=== PATIENT | female | born 1980 | race African-American/Black ===

== ENCOUNTER 2017-10-23 08:36 | Emergency (ER) | payer OTHER ==
[2017-10-23 08:40] VITALS: BP 134/92; PULSE 92; TEMP 98.5
--- NOTE | 2017-10-23 09:07 | PDOC ---
History of Present Illness - General Chief Complaint: Ear Problem Stated Complaint: EAR PROBLEM Time Seen by Provider: 10/23/17 08:54 History Source: Patient Exam Limitations: No Limitations - History of Present Illness Initial Comments: CHIEFL COMPLAINT: 37 y/o afebrile female with left ear pain with drainage x 3 days. HISTORY OF PRESENT ILLNESS: The patient also admits to decreased hearing in her left ear. She denies ear trauma, swimming, f/c, n/v/d, CLARK, neck pain, and all other symptoms. She has been using OTC ear drops with little relief. Past History - Past Medical History Allergies/Adverse Reactions: Allergies Allergy/AdvReac Type Severity Reaction Status Date / Time diphenhydramine Allergy Elevated Verified 10/23/17 09:03 [From Benadryl] Blood Pressure tramadol Allergy Hives Verified 10/23/17 09:03 Home Medications: Ambulatory Orders Amoxicillin/Potassium Clav [Augmentin 875-125 Tablet] 1 each PO BID #14 tablet 10/23/17 Ofloxacin Otic [Floxin Otic -] 10 drop DAILY #100 drops 10/23/17 COPD: No - Suicide/Smoking/Psychosocial Hx Smoking History: Current every day smoker Number of Cigarettes Smoked Daily: 7 Information on smoking cessation initiated: No Review of Systems - Review of Systems Able to Perform ROS?: Yes Constitutional: No: Symptoms Reported HEENTM: Yes: Ear Pain, Ear Discharge, Hearing Loss (left ear). No: Nose Pain, Nose Congestion, Tinnitus Respiratory: No: Symptoms reported Cardiac (ROS): No: Symptoms Reported Neurological: No: Symptoms reported *Physical Exam - Vital Signs Last Vital Signs Temp Pulse Resp BP Pulse Ox 98.5 F 92 H 18 134/92 99 10/23/17 08:37 10/23/17 08:37 10/23/17 08:37 10/23/17 08:37 10/23/17 08:37 - Physical Exam Comments: The patient is well appearing and ambulatory. General Appearance: Yes: Nourished, Appropriately Dressed. No: Apparent Distress HEENT: positive: EOMI, MIKE, Hearing Decreased (left ear), Other (Left ear canal with minimal erythema and edema. Unable to visualize left TM secondary to fluid. Suspect TM rupture.). negative: Tonsillar Exudate, Nasal Congestion, Rhinorrhea Neck: negative: Lymphadenopathy (R), Lymphadenopathy (L) Neurologic: positive: Other (No mastoid TTP b/l) Medical Decision Making - Medical Decision Making A/P: 37 y/o female with left swimmers ear and TM rupture. Will d/c with rx for augmentin and ofloxacin. Patient instructed not to swim until improved and f/u with Dr. Lacey next week if no improvement. The patient verbalizes understanding of all instructions, has no further questions and is awaiting discharge. *DC/Admit/Observation/Transfer Diagnosis at time of Disposition: Otitis externa Qualifiers: Otitis externa type: unspecified type Chronicity: acute Laterality: left Qualified Code(s): H60.502 - Unspecified acute noninfective otitis externa, left ear Tympanic membrane rupture Qualifiers: Laterality: left Qualified Code(s): H72.92 - Unspecified perforation of tympanic membrane, left ear - Discharge Dispostion Disposition: HOME Condition at time of disposition: Good - Prescriptions Prescriptions: Amoxicillin/Potassium Clav [Augmentin 875-125 Tablet] 1 each PO BID #14 tablet Ofloxacin Otic [Floxin Otic -] 10 drop DAILY #100 drops - Referrals Referrals: Diana Block MD [Primary Care Provider] - Savage Lacey MD [Staff Physician] - 1 week - Patient Instructions Printed Discharge Instructions: DI for Tympanic Membrane Perforation-Adult, DI for Otitis Externa Additional Instructions: Discharge Instructions: -You have a ruptured eardrum -2 prescriptions for antibiotics have been sent to your pharmacy; please use the drops as prescribed -No swimming until symptoms improve -Please follow up with Dr. Lacey in 1 week if no improvement in symptoms -Return to the ER with any worsening or concerning symptoms - Post Discharge Activity
== END 2017-10-23 09:12 | disposition home or self-care (01) ==
LOC: JERFT 08:36
DX: H60.502 Unspecified acute noninfective otitis externa, left ear (principal); H72.92 Unspecified perforation of tympanic membrane, left ear
CPT/HCPCS: 99281-25